=== PATIENT | female | born 1995 | race Two or more races ===

== ENCOUNTER 2025-04-04 18:53 | Emergency (ER) | payer BC, SELFPAY ==
[2025-04-04 19:13] LABS: #Basophils Less than 0.03 10x3/uL (0.0-0.2); #Eosinophils 0.21 10x3/uL (0.0-0.7); #Monocytes 0.65 10x3/uL (0.11-0.59); #Neutrophils 4.85 10x3/uL (1.40-6.50); %Basophils 0.2 % (0.0-1.0); %Eosinophils 2.2 % (0.0-10.0); %Lymphocytes 39.0 % (21.0-51.0); %Monocytes 6.9 % (0.0-10.0); %Neutrophils 51.2 % (42.0-75.0); Hematocrit 43.4 % (36.0-47.0); Hemoglobin 13.9 g/dL (12.0-16.0); Mean Corpuscular Hemoglobin 29.4 pg (27.0-31.0); Mean Corpuscular Volume 91.9 fL (78.0-98.0); Platelet Count 322 10x3/uL (130-400); Red Blood Cell (RBC) Count 4.72 mill/uL (4.20-5.40); White Blood Cell (WBC) Count 9.47 10x3/uL (4.8-10.8)
[2025-04-04 19:43] LABS: ALT (SGPT) 37 U/L (Less than 34); AST (SGOT) 39 U/L (11-34); Albumin 4.0 g/dL (3.1-4.5); Alkaline Phosphatase 45 U/L (40-110); Anion Gap 8 mmol/L (10-20); BUN (Urea Nitrogen) 12 mg/dL (7.0-18.7); Bilirubin, Total 0.3 mg/dL (0.3-1.2); Calc. Creatinine Clearance 0 mL/min (70-130); Calcium 8.8 mg/dL (7.8-10.44); Carbon Dioxide 23 mmol/L (22-29); Chloride 111 mmol/L (98-107); Globulin 2.4 g/dL (2.4-3.5); Glucose 97 mg/dL (70-105); Potassium 3.3 mmol/L (3.5-5.1); Sodium 139 mmol/L (136-145)
== END 2025-04-05 01:22 | disposition home or self-care (01) ==
LOC: ERS 18:53
DX: R55 Syncope and collapse (principal); G35 Multiple sclerosis
CPT/HCPCS: 80053; 84702; 85025; 93005; 94760; 99284